=== PATIENT | male | born 1955 | race Caucasian/White ===

== ENCOUNTER 2022-08-28 06:25 | Day surgery (SDC) | payer OTHER ==
[~2022-08-28] VITALS: Ht 188 cm; Wt 102.3 kg
[~2022-08-28 06:25] MED LIST: MAGNESIUM100 MG PO; VITAMIN D325 MCG PO
[2022-08-28 06:43] VITALS: BP 112/69
[2022-08-28 08:28] VITALS: BP 101/69
--- NOTE | 2022-08-28 08:34 | NUR ---
08/28/22 0834 Justine Thompson 0757 PT ARRVES TO PACU ON 3L 02. REMOVED 02 PT MAINTAINS SA02. PT RESPONDS TO STIMULI, ANSWERS QUESTIONS. DENIES PAIN. 0810 DR FLORES TO SEE PT 0820 PT SITTING UP DRINKING JUICE. 0825 DC INSTRUCTIONS PROVIDED. PT STATES UNDERSTANDING 0833 PT DRESSED PER SELF
--- NOTE | 2022-08-28 18:13 | OR ---
[facility] [address], [place] [address] Signed DATE OF OPERATION: 08/28/2022 SURGEON: Nile Flores MD PREOPERATIVE DIAGNOSIS: Colon screening. POSTOPERATIVE DIAGNOSES: 1. Mild sigmoid diverticulosis. 2. Small adenomatous polyp of right colon. PROCEDURE: Total colonoscopy to the cecum with cold morcellation polypectomy x1. ANESTHESIA: Intravenous sedation; fentanyl 100 mcg and Versed 4 mg. INDICATION: This 66-year-old white man is a patient of Dr. Keron Sosa. He underwent colonoscopy in 2007, which was normal. He has no symptoms of bleeding, diarrhea or constipation and no family history of colon cancer. He is admitted at this time to undergo screening colonoscopy. He understands the risk of bleeding, infection, and perforation. FINDINGS: The prep was excellent. Complete colonoscopy was undertaken to the cecum without question. He had a small adenomatous polyp of the proximal ascending colon which was excised. He had a few scattered diverticula of the sigmoid and left colon. There were no other findings of concern. DESCRIPTION OF PROCEDURE: The patient was brought to the endoscopy suite and placed in the lateral decubitus position, given intravenous sedation to the point of slurred speech and nystagmus. Digital rectal examination was normal. An Olympus video colonoscope was passed in the rectum and manipulated throughout the colon noting some diverticula of the sigmoid and left colon. Scope was ultimately advanced to the cecum. Ileocecal valve was normal. Scope was withdrawn and a small adenomatous appearing polyp was noted, narrow band imaging confirmed this. The lesion was excised with cold morcellation technique. The scope was further withdrawn. Remaining colon was normal other than the diverticula of the sigmoid and left colon, Electronically Signed By: NILE LFORES MD 08/28/22 1813 PATIENT NAME: JACQUELINE BAILEY OPERATIVE REPORT DATE OF : 59 REPORT #: [id number] PHYSICIAN: NILE FLORES MD PCP: KERON SOSA MD REPORT IS CONFIDENTIAL AND NOT TO BE RELEASED WITHOUT AUTHORIZATION [facility] [address], [place] [address] Signed which were minimal. Retroflexed view was normal as well. The scope was removed and the patient was taken to the recovery room in good condition. CONCLUDING DIAGNOSES: Polyp x1 and diverticulosis. PLAN: Recommend repeat colonoscopy in 5 years, sooner if clinically indicated. He will return to the ongoing care of Dr. Keron Sosa. MD JEREMY Donnelly/ANNABELL /[id number] cc: Keron Sosa MD Copies: KERON SOSA MD ~ Electronically Signed By: NILE FLORES MD 08/28/22 1813 PATIENT NAME: JACQUELINE BAILEY OPERATIVE REPORT DATE OF : 59 REPORT #: [id number] PHYSICIAN: NILE FLORES MD PCP: KERON SOSA MD REPORT IS CONFIDENTIAL AND NOT TO BE RELEASED WITHOUT AUTHORIZATION
--- NOTE | 2022-08-29 15:43 | PATH ---
[facility] [address] [place], [place] [address] Signed SPECIMEN(S): A ASCENDING/RIGHT COLON POLYP SPECIMEN SOURCE: A. ASCENDING/RIGHT COLON POLYP CLINICAL HISTORY: Pre: Follow-up colonoscopy 2007 (normal). Post: Diverticula and polyp x 1. FINAL PATHOLOGIC DIAGNOSIS: Ascending / right colon polyp: - Polypoid colonic mucosa with focal slight adenomatous features (one fragment). JVR:yudyh:[id number] MICROSCOPIC EXAMINATION: Histologic sections of all submitted blocks are examined by light microscopy. These findings, together with the gross examination, support the pathologic diagnosis. GROSS DESCRIPTION: The specimen, labeled and designated "Arden, ascending colon polyp," is received in formalin and consists of one hallman soft tissue fragment, 0.2 cm. Entirely submitted in (A1). JS (under the direct supervision of a pathologist) The Gross Description was prepared using a voice recognition system. The report was reviewed for accuracy; however, sound-alike word errors, addition and/or deletions may occur. If there is any question about this report, please contact Client Services. PERFORMING LABORATORY: The technical component was performed by [facility], [address] [place] [id number] (CLIA# [id number]). Professional interpretation was performed by [facility], [address] [place] [id number] (CLIA#: [id number]). Diagnostician: Brian Cramer MD Pathologist Electronically Signed 08/29/2022 Copies: PATIENT NAME: JACQUELINE BAILEY PATHOLOGY DATE OF : 59 REPORT #: [id number] PHYSICIAN: [facility] PCP: KERON CARUSO MD REPORT IS CONFIDENTIAL AND NOT TO BE RELEASED WITHOUT AUTHORIZATION [address] [address] Signed ~ PATIENT NAME: JACQUELINE BAILEY PATHOLOGY DATE OF : 59 REPORT #: [id number] PHYSICIAN: [facility] PCP: KERON CARUSO MD REPORT IS CONFIDENTIAL AND NOT TO BE RELEASED WITHOUT AUTHORIZATION
== END 2022-08-28 08:35 | disposition home or self-care (01) ==
LOC: OPS 06:25 → DS 06:25 → OPS 07:30
PROVIDERS: ATTEND Surgery
PROC: 0DBK8ZZ Excision of Ascending Colon, Via Natural or Artificial Opening Endoscopic (ICD-10-PCS; principal; 2022-08-28 07:30)
DX: Z12.11 Encounter for screening for malignant neoplasm of colon (principal); K09.8 Other cysts of oral region, not elsewhere classified; K64.9 Unspecified hemorrhoids; K57.30 Diverticulosis of large intestine without perforation or abscess without bleeding; K63.5 Polyp of colon
CPT/HCPCS: 99153; G0500; J2250; J3010; J7121